=== PATIENT | male | born 1985 | race Two or more races ===

== ENCOUNTER 2017-12-31 19:11 | Emergency (ER) | payer OTHER ==
[2017-12-31 19:32] VITALS: BP 115/70
[2017-12-31] MEDS ORDERED: HYDROCODONE/ACETAMINOPHEN 5-325 MG (6 TAB/ER DISP) PO PRN (20:00)
--- NOTE | 2017-12-31 20:06 | ER Document Report ---
HPI - HPI Patient complains to provider of: Right thigh injury Onset: Yesterday Onset/Duration: Sudden Quality of pain: Sharp Pain Level: 5 Context: Patient states that he was playing soccer on 5 days ago and noticed the following day that he had some tenderness to the anterior aspect of his right thigh. Patient states that he was playing soccer yesterday and went to kick the ball and had a sudden sharp onset of right anterior thigh tenderness and felt a pop in his leg. Patient states since then he has had swelling to the proximal third of his anterior thigh area. Patient complains of difficulty in walking due to the pain. Associated Symptoms: Other - Right thigh injury Exacerbated by: Standing, Movement, Walking Relieved by: Denies Similar symptoms previously: No Recently seen / treated by doctor: No - ROS ROS below otherwise negative: Yes Systems Reviewed and Negative: Yes All other systems reviewed and negative - GASTROINTESTINAL Gastrointestinal: DENIES: Nausea - MUSCULOSKELETAL Musculoskeletal: REPORTS: Extremity pain, Swelling - DERM Skin Color: Normal Past Medical History - General Information source: [employer] - Social History Smoking Status: Never Smoker Frequency of alcohol use: None Drug Abuse: None Occupation: Active duty Lives with: Family Family History: Reviewed & Not Pertinent - Medical History Medical History: Negative Past Surgical History: Reports: Hx Orthopedic Surgery - Previous right knee meniscus surgery right knee cyst Vertical Provider Document - CONSTITUTIONAL Agree With Documented VS: Yes Exam Limitations: No Limitations General Appearance: WD/WN, No Apparent Distress - INFECTION CONTROL TRAVEL OUTSIDE OF THE [place] IN LAST 30 DAYS: No - HEENT HEENT: Atraumatic, Normocephalic - NECK Neck: Normal Inspection - RESPIRATORY Respiratory: Breath Sounds Normal, No Respiratory Distress - CARDIOVASCULAR Cardiovascular: Regular Rate, Regular Rhythm Pulses: Normal: Dorsalis pedis - MUSCULOSKELETAL/EXTREMETIES Musculoskeletal/Extremeties: Tender - Right anterior femoral tenderness with muscle deformity, muscle compartments soft, patient with difficulty in lifting leg off of the stretcher. - NEURO Level of Consciousness: Awake, Alert, Appropriate Motor/Sensory: No Sensory Deficit - DERM Integumentary: Warm, Dry, No Rash Course - Re-evaluation Re-evalutation: 12/31/17 20:01 Patient with findings worrisome for patellar versus quadricep tendon rupture. Patient is active duty and [place] - Vital Signs Vital signs: Temp Pulse Resp BP Pulse Ox 98.7 F 71 16 115/70 98 12/31/17 19:31 12/31/17 19:31 12/31/17 19:31 12/31/17 19:31 12/31/17 19:31 Procedures - Immobilization Right Knee Pre-Proc Neuro Vasc Exam: Normal Immobilizer type: Knee immobilizer Performed by: PCT Post-Proc Neuro Vasc Exam: Normal Alignment checked and good: Yes Discharge - Discharge Clinical Impression: Tendon injury Thigh pain Qualifiers: Laterality: right Qualified Code(s): M79.651 - Pain in right thigh Condition: Stable Disposition: HOME, SELF-CARE Instructions: Use of Crutches ([facility]), Ice & Elevation ([facility]) Additional Instructions: Return immediately for any new or worsening symptoms Followup with your primary care provider, call tomorrow to make a followup appointment Follow-up with orthopedics for further evaluation, call tomorrow for an appointment. Forms: Return to Work Referrals: [facility] [Provider Group] - Follow up tomorrow
== END 2017-12-31 20:24 | disposition home or self-care (01) ==
LOC: ER 19:11
DX: S76.901A Unspecified injury of unspecified muscles, fascia and tendons at thigh level, right thigh, initial encounter (principal); M79.651 Pain in right thigh; X58.XXXA Exposure to other specified factors, initial encounter; Y93.66 Activity, soccer
CPT/HCPCS: 99283; L1830